=== PATIENT | male | born 1995 | race Two or more races ===

== ENCOUNTER 2017-01-23 13:26 | Emergency (ER) | payer SELFPAY ==
[2017-01-23 13:30] VITALS: BP 118/71; PULSE 80; RESP 16; TEMP 98.1; O2SAT 99
--- NOTE | 2017-01-23 14:02 | ED PDOC ---
HPI: General Adult Time Seen by Provider: 01/23/17 13:45 Chief Complaint (Nursing): ENT Problem Chief Complaint (Provider): Allergic Reaction History Per: Patient History/Exam Limitations: no limitations Onset/Duration Of Symptoms: Days (x1 week) Current Symptoms Are (Timing): Still Present Additional Complaint(s): Trev Smith is a 22 year old male with no significant past medical history who presents to the ED due to an allergic reaction x1 week. Patient reports feeling a swelling sensation in his throat. States he was previously prescribed Zithromax for a sinus infection with some relief. Also states he took Mucinex last night and felt improvement in swelling. Patient states he is concerned because the feeling of something being in his throat is still present. Denies difficulty breathing, swallowing and speaking. Also denies rash or hives, and swelling to his lips, fingers, eyes and tongue. Denies any cough or ear pain. Patient admits he is under stress from school and suspects anxiety. Also suspects swallowing a bug which may have laid eggs in his throat, but denies any vomiting, abdominal pain, foul breath, or fever. PMD: [facility] Provider Past Medical History Reviewed: Historical Data, Nursing Documentation, Vital Signs Vital Signs: Last Vital Signs Temp 98.1 F 01/23/17 13:27 Pulse 80 01/23/17 13:27 Resp 16 01/23/17 13:27 BP 118/71 01/23/17 13:27 Pulse Ox 99 01/23/17 14:19 - Medical History PMH: No Chronic Diseases - Surgical History Surgical History: No Surg Hx - Family History Family History: States: Unknown Family Hx - Home Medications Home Medications: Ambulatory Orders Medication Instructions Recorded Mometasone Furoate [Nasonex] 0.05 mg NS BID #17 gm 01/23/17 - Allergies Allergies/Adverse Reactions: Allergies Allergy/AdvReac Type Severity Reaction Status Date / Time amoxicillin [From Augmentin] Allergy RASH Verified 01/23/17 13:27 clavulanic acid Allergy RASH Verified 01/23/17 13:27 [From Augmentin] Review of Systems ROS Statement: Except As Marked, All Systems Reviewed And Found Negative Constitutional: Negative for: Fever Eyes: Negative for: Eyelid Inflammation, Redness ENT: Positive for: Throat Swelling (sensation). Negative for: Ear Pain, Other ( Tongue swelling) Respiratory: Negative for: Cough, Shortness of Breath Gastrointestinal: Negative for: Vomiting, Abdominal Pain Skin: Negative for: Rash, Other (Hives) Physical Exam - Reviewed Nursing Documentation Reviewed: Yes Vital Signs Reviewed: Yes - Physical Exam Appears: Positive for: Well (speaking full sentences), Non-toxic, No Acute Distress (no labored breathing) Head Exam: Positive for: ATRAUMATIC, NORMAL INSPECTION, NORMOCEPHALIC Skin: Positive for: Normal Color, Warm, DRY Eye Exam: Positive for: EOMI, Normal appearance, PERRL ENT: Positive for: Normal ENT Inspection. Negative for: Pharyngeal Erythema, Tonsillar Exudate, Tonsillar Swelling (Tongue swelling), Other (Uvula Swelling, Tongue Swelling) Cardiovascular/Chest: Positive for: Regular Rate, Rhythm. Negative for: Murmur Respiratory: Positive for: Normal Breath Sounds. Negative for: Respiratory Distress Neurologic/Psych: Positive for: Alert, Oriented. Negative for: Motor/Sensory Deficits Comments: No rash or swelling to face - ECG O2 Sat by Pulse Oximetry: 99 (RA) Pulse Ox Interpretation: Normal Medical Decision Making Medical Decision Making: Time: 13:59 Initial Impression: Post nasal drip Plan: --Upon provider evaluation patient is medically stable, and requires no further treatment in the ED at this time. Patient will be discharged home with Rx for Nasonex. Patient instructed to use Nasonex for 1 week and to monitor for any nasal bleeding. Counseling was provided and all questions were answered regarding diagnosis and need for follow up with PMD. There is agreement to discharge plan. Return if symptoms persist or worsen. Scribe Attestation: Documented by Quan Helm, acting as a scribe for Jyoti Crabtree PA-C Provider Scribe Attestation: All medical record entries made by the Scribe were at my direction and personally dictated by me. I have reviewed the chart and agree that the record accurately reflects my personal performance of the history, physical exam, medical decision making, and the department course for this patient. I have also personally directed, reviewed, and agree with the discharge instructions and disposition. Disposition - Clinical Impression Clinical Impression: Sinusitis - Patient ED Disposition Is Patient to be Admitted: No Counseled Patient/Family Regarding: Diagnosis, Need For Followup, Rx Given - Disposition Referrals: [facility] [Outside] Disposition: Routine/Home Disposition Time: 13:59 Condition: STABLE Prescriptions: Mometasone Furoate [Nasonex] 0.05 mg NS BID #17 gm Instructions: Rhinosinusitis (ED) Forms: [facility] ([place])
== END 2017-01-23 14:41 | disposition home or self-care (01) ==
LOC: H.ER 13:26
DX: T78.40XA Allergy, unspecified, initial encounter (principal); Z88.0 Allergy status to penicillin; J32.9 Chronic sinusitis, unspecified